=== PATIENT | male | born 1965 | race Two or more races ===

== ENCOUNTER 2018-11-22 06:27 | Emergency (ER) | payer OTHER ==
[~2018-11-22] VITALS: Ht 182.9 cm; Wt 117.0 kg
--- NOTE | 2018-11-22 06:38 | NUR ---
PT BIBRA C/O GENERALIZED WEAKNESS. PT HAD RECENT MAJOR CHANGES IN LIFE, PER EMS. PT COMPLAINING OF JAW PAIN AND SOB. PT ON MONITOR IN BED 9. WILL CONTINUE TO MONITOR.
--- NOTE | 2018-11-22 06:55 | NUR ---
TECH AT BEDSIDE FOR EKG
--- NOTE | 2018-11-22 07:00 | NUR ---
PHLEB AT BEDSIDE FOR LAB DRAW
--- NOTE | 2018-11-22 07:10 | NUR ---
PT TAKEN TO CT VIA [facility]
[2018-11-22] MEDS ORDERED: LORAZEPAM 1 MG TABLET ONE (07:12)
[2018-11-22 07:13] LABS: BASOPHILS # (AUTO) 0.1 /CMM (0.0-0.2); BASOPHILS % (AUTO) 1.1 % (0.0-2.0); EOSINOPHILS % (AUTO) 2.8 % (0.0-6.0); HEMATOCRIT 45 % (39-51); HEMOGLOBIN 15.7 g/dL (13.5-17.5); LYMPHOCYTES # (AUTO) 1.4 /CMM (0.8-4.8); MEAN CORPUSCULAR HGB CONC 35 g/dl (31.0-36.0); MEAN CORPUSCULAR VOLUME 88 fL (80-96); MONOCYTES # (AUTO) 0.7 /CMM (0.1-1.30); MONOCYTES % (AUTO) 10.8 % (2.0-12.0); NEUTROPHILS # (AUTO) 4.2 /CMM (1.8-8.9); NEUTROPHILS % (AUTO) 64.3 % (43.0-81.0); PLATELET COUNT (AUTO) 197 /CMM (150-450); RED BLOOD CELL COUNT(AUTO) 5.16 MIL/uL (4.5-6.0); WHITE BLOOD COUNT (AUTO) 6.6 K/uL (4.3-11.0)
[2018-11-22 07:21] LABS: CARBON DIOXIDE 25 mmol/L (21-32); CHLORIDE 99 mmol/L (98-107); CREATININE 0.8 mg/dL (0.6-1.3); GLUCOSE 337 mg/dL (74-106); POTASSIUM 3.9 mmol/L (3.5-5.1); SODIUM SERUM 134 mmol/L (136-145); UREA NITROGEN, BLOOD 16 mg/dL (7-18)
[2018-11-22] MEDS ORDERED: LORAZEPAM 1 MG TABLET PO ONE (07:30)
[2018-11-22 07:34] LABS: B-TYPE NATRIURETIC PEPTIDE 435 PG/ML (0-125)
--- NOTE | 2018-11-22 07:35 | NUR ---
REPORT GIVEN TO MAIK VARGAS RN FOR [facility]
--- NOTE | 2018-11-22 07:38 | NUR ---
RECEIVED REPORT FROM SIMEON HEIN, PT IS AWAKE AND ALERT, NOT IN RESPIRATORY DISTRESS, APPEARS ANXIOUS, WILL CONTINUE TO MONITOR.
[2018-11-22] MEDS ORDERED: INSULIN REGULAR, HUMAN 100 UNIT/ML 10 ML VIAL SQ ONE (09:00)
[2018-11-22] MEDS ORDERED: IBUPROFEN 600 MG TABLET PO ONE ×2 (09:00→09:21)
[2018-11-22] MEDS ORDERED: INSULIN REGULAR, HUMAN 100 UNIT/ML 10 ML VIAL ONE (09:21)
[2018-11-22] MEDS ORDERED: INSULIN REGULAR, HUMAN 100 UNIT/ML 3 ML VIAL IV ONE (11:00)
--- NOTE | 2018-11-22 11:02 | NUR ---
Patient discharged to home in stable condition. Written and verbal after care instructions given. Patient verbalizes understanding of instruction.
[2018-11-22 11:03] VITALS: BP 110/72
== END 2018-11-22 11:04 | disposition home or self-care (01) ==
LOC: ER 06:28
DX: F41.0 Panic disorder [episodic paroxysmal anxiety] (principal); R51 Headache; R07.89 Other chest pain; E11.65 Type 2 diabetes mellitus with hyperglycemia; I10 Essential (primary) hypertension; R00.0 Tachycardia, unspecified; Z86.73 Personal history of transient ischemic attack (TIA), and cerebral infarction without residual deficits
CPT/HCPCS: 36415; 70450; 71045; 80048; 82962; 83880; 84484 ×2; 85025; 85730; 93005; 96372; 96374; 99284; A4606; J1815 ×2; Z7610